=== PATIENT | female | born 1980 ===

== ENCOUNTER 2024-12-14 05:51 | Day surgery (SDC) | payer OTHER ==
[2024-12-07 10:30] VITALS: BP 101/69
[2024-12-07 10:54] LABS: PH,URINE 5.5 (5.0-8.0); URINE APPEARANCE Clear; URINE BILIRRUBIN Negative (NEGATIVE); URINE BLOOD Trace; URINE COLOR Yellow; URINE GLUCOSE Negative (NEGATIVE); URINE KETONE Negative (NEGATIVE); URINE LEUKOCYTE Negative; URINE NITRATE Negative; URINE PROTEIN Negative (NEGATIVE); URINE UROBILINOGEN 0.2 E.U./dl
[2024-12-07 10:56] LABS: BASO % 0.7 % (0.1-1.2); EOS # 0.07 (0.04-0.54); EOS % 2.4 % (0.7-7.0); HEMATOCRIT 38.5 % (34.1-44.9); HEMOGLOBIN 12.6 g/dL (11.2-15.7); LYMPH # 1.41 (1.18-3.74); LYMPH % 47.5 % (19.3-53.1); MEAN CORPUSCULAR HEMOGLOBIN 28.8 pg (25.6-32.2); MONO # 0.23 (0.24-0.82); MONO % 7.7 % (4.7-12.5); NEUT # 1.24 (1.56-6.13); NEUT % 41.7 % (34.0-71.1); PLATELET COUNT 205 K/uL (163-369); RED BLOOD COUNT 4.37 M/uL (3.93-5.22); RED CELL DISTRIBUTION WIDTH 13.2 % (11.6-14.4)
[2024-12-07 11:05] LABS: URINE BACTERIA 67.2 uL (0.0-1933); URINE EPITHELIAL CELLS 4.8 uL (0.0-38.8); URINE RBC 3.8 uL (0.0-20.8); URINE WBC 2.5 uL (0.0-23.2)
[2024-12-07 11:09] LABS: URINE CAST 0.14 uL (0.0-1.40)
[2024-12-07 11:22] LABS: INR 0.99; PARTIAL THROMBOPLASTIN TIME 27.6 SECONDS (22.0-34.0); PROTHROMBIN TIME 10.8 SECONDS (9.0-11.5)
[2024-12-07 11:25] LABS: ALBUMIN 3.7 gm/dL (3.4-5.0); CALCIUM 8.9 mg/dL (8.5-10.1); CREATININE SERUM 0.64 mg/dL (0.55-1.02); GFR 101.28; PHOSPHOROUS 3.7 mg/dL (2.5-4.9); POTASSIUM 4.45 mEq/L (3.5-5.1)
[~2024-12-14] VITALS: Ht 172.7 cm; Wt 68.0 kg
[2024-12-14] MEDS ORDERED: CEFAZOLIN SODIUM 1,000 MG VIAL ONE (08:15)
[2024-12-14] MEDS ORDERED: LIDOCAINE HCL 1%/EPINEPHRINE 20ML VIAL IJ ONE (08:42)
[2024-12-14] MEDS ORDERED: EPINEPHRINE HCL/PF 1 MG/ML AMPUL ONE (08:45)
[2024-12-14] MEDS ORDERED: POVIDONE-IODINE 118 ML BOTT TOP ONE (08:45)
[2024-12-14] MEDS ORDERED: CEPHALEXIN500 MG PO (10:26)
[2024-12-14] MEDS ORDERED: MORPHINE SULFATE 4 MG/ML VIAL IV ONE (12:25)
== END 2024-12-14 13:20 | disposition home or self-care (01) ==
LOC: CIR.AMB 05:51
PROVIDERS: ATTEND Otolaryngology Otology & Neurotology
DX: H90.12 Conductive hearing loss, unilateral, left ear, with unrestricted hearing on the contralateral side (principal); H80.02 Otosclerosis involving oval window, nonobliterative, left ear